=== PATIENT | female | born 1970 | race African-American/Black ===

== ENCOUNTER 2024-02-12 15:54 | Inpatient (IN) | payer MEDICAID, OTHER ==
[~2024-02-12] VITALS: Ht 152.4 cm; Wt 82.2 kg
[2024-02-12] MEDS: KETOROLAC 30MG/ML VIAL IM ONE (17:50)
[2024-02-12] MEDS: HYDROCODONE/ACETAMINOPHEN 5/325MG TABLET PO ONE (17:50)
[2024-02-12] MEDS ORDERED: HYDR-4001 MT (18:51)
[2024-02-12] MEDS: ONDANSETRON HCL 4MG/2ML INJ IV STA (19:18)
[2024-02-12] MEDS: MORPHINE SULFATE 4 MG/ML INJ (FOR IV/IM USE) IV STA (19:19)
[2024-02-12 19:38] LABS: BASOPHILS % 0.4 % (0.0-2.0); HEMATOCRIT. 38.1 % (36.0-48.0); HEMOGLOBIN. 12.8 g/dL (12.0-16.0); LYMPHOCYTES % 33.4 % (20.0-50.0); MEAN CORPUSCULAR HEMOGLOBIN 29.5 pg (28.0-32.0); MEAN CORPUSCULAR HGB CONC 33.6 g/dL (31.0-37.0); MEAN PLATELET VOLUME 9.4 fl (7.4-10.4); MONOCYTES % 6.1 % (2.0-8.0); NEUTROPHILS % 59.1 % (40.0-76.0); PLATELET 229 x1000/uL (130-400); RED BLOOD CELL COUNT 4.34 mill/uL (4.2-5.4); RED CELL DISTRIBUTION WIDTH 13.7 % (11.6-14.6); WHITE BLOOD COUNT 7.4 x1000/uL (4.5-11.0)
[2024-02-12 19:39] LABS: CHLORIDE 108 mEq/L (98-107); POTASSIUM 4.2 mEq/L (3.5-5.1); SODIUM 139 mEq/L (136-145)
[2024-02-12 19:40] LABS: CALCIUM 9.8 mg/dL (8.7-10.4); CARBON DIOXIDE 24 mEq/L (21-32)
[2024-02-12 19:45] LABS: CREATININE 0.7 mg/dL (0.6-1.0); GLUCOSE 98 mg/dL (70-105); UREA NITROGEN BLOOD 9 mg/dL (9-23)
[2024-02-12 19:46] LABS: CLARITY URINE CLOUDY (CLEAR); COLOR URINE YELLOW (YELLOW); GLUCOSE URINE NEGATIVE (NEGATIVE); KETONES URINE NEGATIVE (NEGATIVE); LEUKOCYTE ESTERASE URINE TRACE (NEGATIVE); NITRITE URINE NEGATIVE (NEGATIVE); OCCULT BLOOD URINE NEGATIVE (NEGATIVE); PH URINE 6.5 (4.5-8.0); PROTEIN URINE NEGATIVE (NEGATIVE); SPECIFIC GRAVITY URINE 1.015 (1.005-1.030); UROBILINOGEN URINE 0.2 E.U./dL (0.2-1.0)
[2024-02-12 19:47] LABS: ALANINE AMINOTRANSFERASE 22 IU/L (10-49); ALBUMIN 4.5 g/dL (3.2-4.8); ASPARTATE AMINOTRANSFERASE 25 IU/L (<34); BILIRUBIN TOTAL 0.7 mg/dL (0.1-1.0); PROTEIN TOTAL 7.9 g/dL (6.0-8.3)
[2024-02-12 20:52] LABS: RBC URINE 0-2 /hpf (0-2)
[2024-02-12 20:53] LABS: BACTERIA URINE 3+; SQUAMOUS EPITHELIAL CELL URINE 2+ /lpf (RARE/1+)
[2024-02-13] VITALS (7 sets, daily range): BP systolic 111–136; BP diastolic 68–136; PULSE 70–88; RESP 18–20; TEMP 96.6–98.4
[2024-02-13] MEDS: HYDROCODONE/ACETAMINOPHEN 10/325MG TABLET PO PRN (03:52)
[2024-02-13 08:55] LABS: PROTHROMBIN TIME 10.9 sec (9.6-11.0)
[2024-02-13] MEDS ORDERED: NALOXONE HCL 0.4MG/ML VIAL IV PRN (11:00)
[2024-02-13] MEDS: MORPHINE SULFATE 2 MG/ML CPJ (NOT FOR IM USE) IV PRN (15:13)
[2024-02-14] VITALS (48 sets, daily range): BP systolic 91–124; BP diastolic 53–80; PULSE 70–122; RESP 8–21; TEMP 97.5–99
[2024-02-14] MEDS ORDERED: ALBUMIN HUMAN 12.5GM/50ML (25%) IV ONE (08:19)
[2024-02-14] MEDS ORDERED: BACITRACIN 14GM TUBE TOP ONE (09:02)
[2024-02-14] MEDS ORDERED: GENTAMICIN SULF 40MG/ML 2ML VIAL ONE (09:02)
[2024-02-14] MEDS ORDERED: THROMBIN (BOVINE) 5000 UNITS/VIAL TOP ONE (09:02)
[2024-02-14] MEDS ORDERED: LIDOCAINE HCL/EPINEPHRINE 1%-EPI 1:100,000 20 ML VIAL ONE (09:02)
[2024-02-14] MEDS ORDERED: FENTANYL CITRATE/PF 50MCG/ML 2ML VIAL IV PRN (10:15)
[2024-02-14] MEDS ORDERED: MEPERIDINE HCL/PF 25MG/ML CPJ IV PRN (10:15)
[2024-02-14] MEDS ORDERED: HYDROMORPHONE HCL/PF 2MG/ML CPJ IV PRN (10:15)
[2024-02-14] MEDS ORDERED: ONDANSETRON HCL 4MG/2ML INJ IV PRN (10:15)
[2024-02-14] MEDS ORDERED: HYDROMORPHONE HCL/PF 2MG/ML CPJ ONE (11:03)
[2024-02-14] MEDS ORDERED: ROCURONIUM BROMIDE 10MG/ML VIAL 5ML IV ONE (11:03)
[2024-02-14] MEDS ORDERED: DEXAMETHASONE 4MG/ML 1ML VIAL ONE (11:05)
[2024-02-14] MEDS ORDERED: PROPOFOL 200MG/20ML VIAL IV ONE (11:06)
[2024-02-14] MEDS ORDERED: CALCIUM CHLORIDE 1GM/10ML SYR IV ONE (11:27)
[2024-02-14] MEDS ORDERED: ALBUMIN HUMAN 25GM/100ML (25%) IV ONE (11:58)
[2024-02-14] MEDS ORDERED: NEOSTIGMINE METHYLSULFATE 1MG/ML 10 ML VIAL ONE (12:33)
[2024-02-14] MEDS ORDERED: GLYCOPYRROLATE 0.2 MG/ML 2ML VIAL ONE ×2 (12:33→12:34)
[2024-02-14] MEDS ORDERED: SUGAMMADEX SODIUM 200 MG/2 ML VIAL IV NR (13:00)
[2024-02-14] MEDS ORDERED: CEFAZOLIN SODIUM 1000MG/VIAL IV SCH (14:00)
[2024-02-14] MEDS: DEXT 5%/LACTATED RINGERS 1,000 ML IV SCH (14:06)
[2024-02-14] MEDS: MORPHINE SULFATE 4 MG/ML INJ (FOR IV/IM USE) IV PRN (14:07)
[2024-02-14] MEDS: NICARDIPINE 100 MG in SODIUM CHLORIDE 0.9% 60 ML IV PRN (14:08)
[2024-02-14] MEDS: CEFAZOLIN 1000MG PREMIX 50ML IV SCH (14:09)
[2024-02-14] MEDS: ONDANSETRON HCL 4MG/2ML INJ IV PRN (15:44)
[2024-02-14] MEDS: DEXAMETHASONE 4MG/ML 1ML VIAL IV SCH (17:26)
[2024-02-15] VITALS (92 sets, daily range): BP systolic 88–138; BP diastolic 46–94; PULSE 87–128; RESP 0–24; TEMP 97.5–98.4
[2024-02-16] VITALS (72 sets, daily range): BP systolic 102–145; BP diastolic 63–86; PULSE 71–103; RESP 7–22; TEMP 97.5–98.5
[2024-02-17] VITALS: BP 120/69; PULSE 80; RESP 18; TEMP 97.7
[2024-02-17 04:00] VITALS: BP 146/83; PULSE 81; RESP 18; TEMP 97
[2024-02-17 08:00] VITALS: BP 117/68; PULSE 70; RESP 20; TEMP 97.5
[2024-02-17] MEDS ORDERED: HYDR-4001 MT (11:46)
[2024-02-17 12:00] VITALS: BP 112/68; PULSE 96; RESP 20; TEMP 97.4
[2024-02-17 15:25] VITALS: BP 112/80; PULSE 96; TEMP 97.4; O2SAT 98
== END 2024-02-17 16:52 | disposition home or self-care (01) | DRG 321 ==
LOC: ER 15:54 → EDBEDREQTM 19:40 → EDBEDREQ 19:40 → 6EST 22:53 → MICUNO 02-14 13:29 → 6EST 02-16 18:50
PROVIDERS: ADMIT Internal Medicine; ATTEND Internal Medicine
PROC: 0RG20K0 Fusion of 2 or more Cervical Vertebral Joints with Nonautologous Tissue Substitute, Anterior Approach, Anterior Column, Open Approach (ICD-10-PCS; principal; 2024-02-17)
PROC: 0RB30ZZ Excision of Cervical Vertebral Disc, Open Approach (ICD-10-PCS; 2024-02-17)
PROC: 4A11X4G Monitoring of Peripheral Nervous Electrical Activity, Intraoperative, External Approach (ICD-10-PCS; 2024-02-17)
DX: M48.02 Spinal stenosis, cervical region (principal); G82.50 Quadriplegia, unspecified; M50.01 Cervical disc disorder with myelopathy, high cervical region; M47.12 Other spondylosis with myelopathy, cervical region; M50.021 Cervical disc disorder at C4-C5 level with myelopathy; E66.9 Obesity, unspecified; M25.78 Osteophyte, vertebrae; M47.22 Other spondylosis with radiculopathy, cervical region; Z20.822 Contact with and (suspected) exposure to COVID-19; M50.121 Cervical disc disorder at C4-C5 level with radiculopathy; M50.11 Cervical disc disorder with radiculopathy, high cervical region; Z68.35 Body mass index [BMI] 35.0-35.9, adult; Z98.891 History of uterine scar from previous surgery
CPT/HCPCS: 36415; 71045; 72040; 72141; 76000; 80053; 81003; 85025; 86850; 86900; 87426; 88304; 88311; 93005; 93970; 97116; 97162; 97166; 97530; 97535; 99285; C1713; C1893; J0690; J1100; J1170; J1580; J1885; J2270; J2405; J2704; J2710; J3490; J7050; J7121; L0172; P9047